=== PATIENT | female | born 1965 | race Caucasian/White ===

== ENCOUNTER 2017-06-01 13:19 | Inpatient (IN) | payer OTHER ==
[~2017-06-01] VITALS: Ht 152.4 cm; Wt 85.3 kg
[2017-06-01 16:02] LABS: CALCIUM 8.5 mg/dL (8.5-10.1); CARBON DIOXIDE 24.1 mmol/L (21-32); CREATININE SERUM 1.3 mg/dL (0.6-1.0); POTASSIUM SERUM 4.2 mmol/L (3.5-5.1)
[2017-06-01 16:06] LABS: PLATELET COUNT 324 x10^3mcL (130-400); RED CELL DISTRIBUTION WIDTH 13.9 % (11.5-14.5)
[2017-06-01 16:07] LABS: ALBUMIN 3.7 g/dL (3.4-5.0); TOTAL PROTEIN, SERUM 7.3 g/dL (6.4-8.2)
[2017-06-01 16:21] LABS: microscopic required? NO
[2017-06-01 16:48] LABS: UA SPECIFIC GRAVITY 1.015 (1.005-1.035); urine erythrocyte NEGATIVE (NEGATIVE)
[2017-06-01 17:32] LABS: CK-MB < 0.5 ng/mL (0-3.6); CREATINE KINASE 27 U/L (26-192)
[2017-06-01 17:33] LABS: BAND NEUTROPHIL 0 % (0-10); BASOPHIL 0 % (0-2); MONOCYTE 3 % (0-7); SEGMENTED NEUTROPHILS 94 % (37-75)
[2017-06-01 17:35] LABS: rbc morphology (normal/abnorm) NORMAL (NORMAL)
[2017-06-01] MEDS ORDERED: CEL500 PO (18:35)
[2017-06-01] MEDS ORDERED: MAGNESIUM OXID400 MG PO (18:36)
[2017-06-01] MEDS ORDERED: PREDNISONE5 MG PO (18:36)
[2017-06-01] MEDS ORDERED: ATENOLOL50 MG PO (18:36)
[2017-06-01] MEDS ORDERED: COZAAR100 MG PO (18:36)
[2017-06-01] MEDS ORDERED: PEPCID20 MG PO (18:37)
[2017-06-01] MEDS ORDERED: FEROSUL325 M1 PO (18:37)
[2017-06-01] MEDS ORDERED: PROGRAF1 MG PO (18:38)
[2017-06-01] MEDS ORDERED: SODIUM BICARBO650 MG PO (18:38)
[2017-06-01 19:05] LABS: CHOLESTEROL/HDL RATIO 2.7; MAGNESIUM 1.5 mg/dL (1.8-2.4); PHOSPHOROUS 3.2 mg/dL (2.5-4.9)
[2017-06-01 19:12] VITALS: BP 119/59
[2017-06-01 19:13] LABS: T3 TOTAL 0.88 ng/mL
[2017-06-01 19:15] LABS: FREE T4 1.15 ng/dL (0.76-1.46); FREE THYROXINE INDEX 2.7 ug/dL (1.4-4.5); T4(THYROXINE) 7.5 ug/dL (4.7-13.3)
[2017-06-01 19:27] LABS: AMPHETAMINE QUAL UR NONE DETECTED (NEG <=1000)
[2017-06-02 06:18] VITALS: BP 134/74
[2017-06-02 06:45] LABS: BASOPHIL % 0.1 % (0-2); PLATELET COUNT 276 x10^3mcL (130-400); RED CELL DISTRIBUTION WIDTH 13.8 % (11.5-14.5)
[2017-06-02 07:03] LABS: CALCIUM 8.2 mg/dL (8.5-10.1); CREATININE SERUM 1.7 mg/dL (0.6-1.0); MAGNESIUM 1.6 mg/dL (1.8-2.4); PHOSPHOROUS 3.1 mg/dL (2.5-4.9); POTASSIUM SERUM 4.2 mmol/L (3.5-5.1)
[2017-06-02 08:41] VITALS: BP 125/60
[2017-06-02] MEDS ORDERED: PROGRAF1 MG PO (09:39)
[2017-06-02 14:09] VITALS: BP 115/61
[2017-06-02 18:34] VITALS: BP 134/69
[2017-06-02 21:25] VITALS: BP 137/77
[2017-06-03 05:40] VITALS: BP 127/63
[2017-06-03 06:38] LABS: CALCIUM 8.1 mg/dL (8.5-10.1); CARBON DIOXIDE 22.3 mmol/L (21-32); CREATININE SERUM 1.7 mg/dL (0.6-1.0); PHOSPHOROUS 4.3 mg/dL (2.5-4.9); POTASSIUM SERUM 4.1 mmol/L (3.5-5.1)
[2017-06-03 06:55] LABS: BASOPHIL % 0.4 % (0-2); PLATELET COUNT 279 x10^3mcL (130-400); RED CELL DISTRIBUTION WIDTH 13.8 % (11.5-14.5)
[2017-06-03 08:58] VITALS: BP 128/72
[2017-06-03 10:54] VITALS: Ht 152.4 cm; Wt 85.3 kg
[2017-06-03 17:23] VITALS: BP 150/82
[2017-06-03 21:52] VITALS: BP 143/76
[2017-06-04 05:45] VITALS: BP 144/69
[2017-06-04 05:56] LABS: BASOPHIL % 0.9 % (0-2); PLATELET COUNT 352 x10^3mcL (130-400); RED CELL DISTRIBUTION WIDTH 13.6 % (11.5-14.5)
[2017-06-04 06:20] LABS: CALCIUM 8.4 mg/dL (8.5-10.1); CARBON DIOXIDE 22.6 mmol/L (21-32); CREATININE SERUM 1.5 mg/dL (0.6-1.0); MAGNESIUM 1.7 mg/dL (1.8-2.4); PHOSPHOROUS 2.9 mg/dL (2.5-4.9); POTASSIUM SERUM 3.9 mmol/L (3.5-5.1)
[2017-06-04 07:35] VITALS: BP 143/76
[2017-06-04] MEDS ORDERED: LAC PO (11:09)
[2017-06-04] MEDS ORDERED: BACO TOP (11:09)
[2017-06-04] MEDS ORDERED: HIBICLENS118 ML TOP (11:10)
[2017-06-04] MEDS ORDERED: CLEOCIN HCL300 MG PO (11:13)
[2017-06-04 13:01] VITALS: BP 143/76
== END 2017-06-04 14:05 | disposition home or self-care (01) | DRG 600 ==
LOC: ED 13:19 → MU 17:09 → DU 17:09 → MU 06-03 07:44
PROVIDERS: Emergency Medicine; ADMIT Family Medicine Sports Medicine
DX: N61.0 Mastitis without abscess (principal); N17.0 Acute kidney failure with tubular necrosis; Z94.0 Kidney transplant status; D68.69 Other thrombophilia; E11.65 Type 2 diabetes mellitus with hyperglycemia; N18.3 Chronic kidney disease, stage 3 (moderate); I12.9 Hypertensive chronic kidney disease with stage 1 through stage 4 chronic kidney disease, or unspecified chronic kidney disease; M32.9 Systemic lupus erythematosus, unspecified; E83.42 Hypomagnesemia; Z68.37 Body mass index [BMI] 37.0-37.9, adult; Z79.899 Other long term (current) drug therapy; Z79.52 Long term (current) use of systemic steroids; Z22.322 Carrier or suspected carrier of Methicillin resistant Staphylococcus aureus
CPT/HCPCS: 82962; 83880; 84439; 90658; J0690; J1885; J2405; J2543; J2550; J3475; J3490; J7030; J7507; J7512; J7517; Q0092

== ENCOUNTER 2019-02-22 17:45 | Emergency (ER) | payer OTHER ==
[~2019-02-22] VITALS: Ht 147.3 cm; Wt 88.5 kg
[~2019-02-22 17:45] MED LIST: ATENOLOL50 MG PO; BACO TOP; CEL500 PO; CLEOCIN HCL300 MG PO; COZAAR100 MG PO; FEROSUL325 M1 PO; HIBICLENS118 ML TOP; LAC PO; MAGNESIUM OXID400 MG PO; PEPCID20 MG PO; PREDNISONE5 MG PO; PROGRAF1 MG PO; SODIUM BICARBO650 MG PO
[2019-02-22 17:53] VITALS: Ht 147.3 cm; Wt 88.5 kg
[2019-02-22 20:07] VITALS: BP 123/78
== END 2019-02-22 20:07 | disposition home or self-care (01) ==
LOC: ED 17:45
DX: J20.9 Acute bronchitis, unspecified (principal); I10 Essential (primary) hypertension; Z98.890 Other specified postprocedural states
CPT/HCPCS: J7512

== ENCOUNTER 2019-02-24 00:19 | Inpatient (IN) | payer OTHER ==
[~2019-02-24] VITALS: Ht 162.6 cm; Wt 102.1 kg
--- NOTE | 2019-02-24 00:33 | NUR ---
EKG COMPLETED. PT TO ROOM T2B.
--- NOTE | 2019-02-24 00:57 | NUR ---
PT. IN ED WITH C/O UPPER BACK PAIN, COUGH, N/V, AND CHEST PAIN WHEN SHE WAS VOMITING. DENIES CHEST PAIN AT THIS TIME. STATES SHE WAS SEEN HERE YESTERDAY AND DIAGNOSED WITH BRONCHITIS, HAS BEEN TAKING ABX AND COUGH MEDICINE PRESCRIBED. STATES SHE DID NOT TAKE ANY THING FOR FEVER OR PAIN TODAY. PT. AAOX4, TALKING AND RESPONDING APPROPRIATELY, BREATHING E/U. FAMILY AT BEDSIDE. AWAITING MSE
--- NOTE | 2019-02-24 01:00 | NUR ---
PT. NOTED TO HAVE OLD VASCULAR SHUT TO LEFT UPPER ARM. STATES SHE NO LOGER GETS DIALYSIS DUE TO HAVING A KIDNEY TRANSPALT YEARS AGO.
--- NOTE | 2019-02-24 01:30 | NUR ---
PT. ROLLING AROUND IN BED, C/O BACK PAIN AND BODY ACHES. ORAL TEMP IS 103. DR. PEREZ MADE AWARE. PT. DENIES CHEST PAIN AT THIS TIME. DAUGHTER AT BEDSIDE, WILL CONTINUE TO MONITOR.
[2019-02-24 02:12] LABS: CALCIUM 8.2 mg/dL (8.5-10.1); CHLORIDE SERUM 104 mmol/L (98-107); CREATININE SERUM 1.9 mg/dL (0.6-1.0); GFR1 29 mL/min; GLUCOSE SERUM 160 mg/dL (74-106); PLATELET COUNT 252 x10^3mcL (130-400); POTASSIUM SERUM 4.5 mmol/L (3.5-5.1); RED CELL DISTRIBUTION WIDTH 13.6 % (11.5-14.5); SODIUM SERUM 136 mmol/L (136-145)
[2019-02-24 02:16] LABS: ALKALINE PHOSPHATASE 73 U/L (46-116); ALT/SGPT 15 U/L (14-59); AST/SGOT 21 U/L (15-37); BILIRUBIN TOTAL 0.43 mg/dL (0.20-1.00)
[2019-02-24 02:28] LABS: ALBUMIN 3.1 g/dL (3.4-5.0)
--- NOTE | 2019-02-24 02:30 | NUR ---
PT. LAYING ON GURNEY IN POSITION OF COMFORT. BREATHING E/U. REPORTS SHE IS FEELING BETTER THAN WHEN SHE FIRST CAME TO ED. REPORTS PAIN 3/10 TO BILATERAL FEET. SLEEPING, EASILY ARROUSABLE. FAMILY AT BEDSIDE. WILL CONTINUE TO MONITOR.
[2019-02-24 02:31] LABS: CK-MB 0.6 ng/mL (0-3.6)
[2019-02-24 02:32] LABS: BASOPHIL % 0 % (0-2)
--- NOTE | 2019-02-24 02:45 | NUR ---
PT. INFORMED THAT URINE SAMPLE SHE LEFT EARLIER IS NO ENOUGH FOR CULTURE. INFORMED HER WE NEED ANOTHER SAMPLE. STATES SHE IS UNABLE TO VOID AT THIS TIME. WILL CHECK BACK WITH PT. IN 30MIN
[2019-02-24 03:20] LABS: UA SPECIFIC GRAVITY 1.015 (1.005-1.035); microscopic required? YES; urine erythrocyte 1+ (NEGATIVE)
--- NOTE | 2019-02-24 03:45 | NUR ---
PT. LAYING ON GURNEY IN POSITION OF COMFORT. BREATHING E/U. NOT IN ANY APPARENT DISTRESS AT THIS TIME. CALL LIGHT IN REACH. WILL CONTINUE TO MONITOR.
--- NOTE | 2019-02-24 04:25 | NUR ---
PT. LAYING ON GURNEY IN POSITION OF COMFORT. SLEEPING EASILY ARROUSABLE. NOT IN ANY APPARENT DISTRESS. DENIES PAIN. NS STARTED AT 150ML/HR. CALL LIGHT IN REACH. WILL CONTINUE TO MONITOR
--- NOTE | 2019-02-24 04:45 | NUR ---
PT. B/P DECREASED. PT. LAYING FLAT ON BACK, AWAKE AND ALERT. B/P REPEATED AND READING 78/42, PT. PLACED IN TREN POSITION. DENIES PAIN BUT REPORTS FEELING A LITTLE DIZZY. DR. PEREZ MADE AWARE AND AT BEDSIDE. INSTRUCTED TO INFUSE NS AT BOLUS RATE. WILL CONTINUE TO MONITOR.
--- NOTE | 2019-02-24 05:10 | NUR ---
PT. AWAKE AND ALERT. CONTINUES TO BE FLAT ON BACK AND IN [place] POSITON. BREATHING E/U. DENIES PAIN. NS INFUSING AT BOLUS RATE. PT. TOLERATING WELL. WILL CONTINUE TO MONITOR.
[2019-02-24] MEDS ORDERED: PROMETHAZI6.25 MG/5 (05:35)
[2019-02-24] MEDS ORDERED: AZITHROMYCIN250 M1 (05:35)
--- NOTE | 2019-02-24 05:50 | NUR ---
PT. TAKEN OUT OF TREN POSITION. DENIES PAIN OR FEELING DIZZY. AWAKE AND ALERT. NOT IN ANY APPARENT DISTRESS AT THIS TIME. CALL LIGHT IN REACH. WILL CONTINUE TO MONITOR.
--- NOTE | 2019-02-24 05:50 | NUR ---
PER JOSE LEDBETTER FOR PT. TO TRANSFER TO TELE FOR FURTHER CARE AND EVALUATION.
--- NOTE | 2019-02-24 05:55 | NUR ---
REPORT CALLED TO JUDITH PARHAM FOR FURTHER CARE OF PATIENT. ALL QUESTIONS AN CONCERNS ADDRESED.
--- NOTE | 2019-02-24 06:08 | NUR ---
PT. TRANSFERED TO [facility]. TRANSPORTED BY FUENTES PARHAM AND CARSISA GUDINO. PT. STABLE AT TIME OF TRANSFER.
--- NOTE | 2019-02-24 06:29 | NUR ---
REC'D PT FROM ED VIA LINA ACCOMPANIED BY RN. PT ADM WITH CC OF COUGH, CP, AND UPPER BACK PAIN. DX: UTI. AAOX4, SPEECH CLEAR, FOLLOWS COMMANDS. TELE 24, NSR, HR 91. DENIES CP OR PALPITATIONS. BP 88/54, MAP 65. REPORTS MILD DIZZINESS. DENIES RESP DISTRESS OR SOB. BREATHING EVEN/UNLABORED ON RA. C/O PRODUCTIVE COUGH WITH WHITE+YELLOW SPUTUM. PT WAS DX WITH BRONCHITIS A FEW DAYS AGO AND WAS PUT OF AZITHROMYCIN. ABD SOFT/ROUND. DENIES ABD PAIN, TENDERNESS, OR N/V. VOIDING FREELY, DENIES DYSURIA. PT HAS HX OF RENAL TRANSPLANT WITH NONFUNCTIONAL LFA SHUNT. AMBULATORY. SKIN INTACT. IV TO RAC FLUSHED AND PATENT. HOME MEDS AT BEDSIDE. INSTRUCTED NOT TO TAKE MEDICATIONS. PT VERBALIZED UNDERSTANDING. ORIENTED TO DEVICES AND SURROUNDINGS. CALL LIGHT WITHIN REACH, BED AT LOWEST POSITION. WILL ENDORSE TO DAY NURSE.
[2019-02-24 06:34] VITALS: BP 88/54
--- NOTE | 2019-02-24 07:15 | NUR ---
PATIENT IS IN BED, BED IS TO THE LOWEST POSITION. PATIENT IS ALERT AND ORIENTED TO PERSON, PLACE AND TIME. PATIENT IS ABLE TO FOLLOW COMMANDS, TACTILE VOICE AND PAIN. PATIENT IS ON ROOM AIR, BREATHING ADEQUATELY AND THERE ARE NO SIGNS OF RESPIRATORY DISTRESS NOTED. PATIENT HAS IV ACCESS NOTED TO RAC, SALINE LOCKED. SKIN IS INTACT. PATIENT IS STABLE WITH NO SIGNS OF DISTRESS. HEELS ARE OFF LOADED WITH PILLOWS, CALL LIGHT IS WITHIN REACH, WILL CONTINUE TO MONITOR.
--- NOTE | 2019-02-24 07:44 | NUR ---
PATIENT IS ON THE BEDSIDE COMMODE, PATIENT IS ALERT AND ORIENTED TO PERSON, PLACE AND TIME. PATIENT IS ABLE TO FOLLOW COMMANDS. DAUGHTER IS AT BEDSIDE. PATIENT IS ON ROOM AIR, BREATHING ADEQUATELY WITH NO SIGNS OF RESPIRATORY DISTRESS NOTED. PATIENT HAS SERRA, DRAINING VIA GRAVITY, YELLOW URINE. PATIENT HAS OPEN INCISION NOTED TO ABDOMEN, WOUND VAC NOTED. L ABDOMEN, ACCORDIAN TUBE NOTED, CLEAR DRAINIAGE NOTED. R ELBOW AND R [place] DRESSING NOTED. BLISTER NOTED TO BLE, BANDAGE NOTED. IV ACCESS NOTED TO R HAND, N/S NOTED AT 70 ML/HR. PATIENT HAS CALL LIGHT WITHIN REACH, WILL CONTINUE TO MONITOR.
[2019-02-24 07:59] VITALS: BP 88/54
[2019-02-24 08:47] VITALS: BP 165/87
--- NOTE | 2019-02-24 09:29 | NUR ---
DR. HENSON MADE AWARE OF TEMP. 102.6. PT IN NO DISTRESS, COOLING MEASURES INITIATED.
--- NOTE | 2019-02-24 11:10 | NUR ---
PATIENT IS IN BED RESTING COMFORTABLY, FREE FROM ANY DISTRESS.
--- NOTE | 2019-02-24 12:24 | NUR ---
DR. HENSON AT BEDSIDE, ALL UPDATES PROVIDED. EXPLAINED TO THE PATIENT THAT THEY CURRENT PLAN IS ANTIBIOTICS, AND TO MONITOR TEMPERATURE. PATIENT INDICATED UNDERSTANDING. NO FURTHER ORDERS AT THIS TIME.
[2019-02-24 12:52] VITALS: BP 109/65; BP 115/70
--- NOTE | 2019-02-24 15:04 | NUR ---
RECEIVED BC RESULT WITH GRAM NEGATIVE BACILLI, DR. BHANDARI MADE AWARE. WILL CONT. IV ROCEPHIN ORDERED.
--- NOTE | 2019-02-24 15:36 | NUR ---
PATIENT IN BED, RESTING COMFORTABLY AT THIS TIME. PATIENT HAS NO S/S OF PAIN. WILL CONTINUE TO MONITOR.
[2019-02-24 17:19] VITALS: BP 157/105
--- NOTE | 2019-02-24 17:25 | NUR ---
PER CASCADE OPERATOR, PATIENTS TEMPERATURE ELEVATED. PATIENTS TEMPERATURE REASSESSED, AND TO BE A HIGH OF 102.0. COOLING MEASURES PROVIDED, AND TYLENOL GIVEN, SEE EMAR. WILL REASSESS.
--- NOTE | 2019-02-24 19:24 | NUR ---
GAVE REPORT TO PRASAD ANGELES. ALL QUESTIONS ANSWERED.
--- NOTE | 2019-02-24 19:26 | NUR ---
NURSING CO-SIGN THE DOCUMENTATION ENTERED BY THE RN COURT HAS BEEN REVIEWED. REVIEWED/CO-SIGNED BY: Donna Gray DOCUMENTATION DONE BY:KEVYN LAWRENCE
--- NOTE | 2019-02-24 20:00 | NUR ---
RECEIVED PT WITH EYES CLOSED, APPEARS TO BED SLEEPING IN NO DISTRESS. EASILY AROUSABLE. ORIENTED X4. SPEECH CLEAR. ABLE TO MAKE NEEDS KNOWN. DENIES CHEST PAIN. LUNG SOUNDS CLEAR. BREATHING EASILY ON ROOM AIR. BS ACTIVE IN ALL FOUR QUADS. LAST BM TODAY. VOIDING FREELY. PT ABLE TO AMBULATE WITH MINIMAL ASSISTANCE NEEDED. FULL ROM. IVF NS AT 80ML/HR INFUSING WELL TO RAC. SHIFT ASSESSMENT COMPLETED. CALL LIGHT WITHIN REACH. BED IS IN LOWEST POSITION. WILL CONTINUE TO MONITOR CLOSELY.
[2019-02-24 20:43] VITALS: BP 139/75
--- NOTE | 2019-02-24 22:20 | NUR ---
TEMP 102.7, COOLING MEASURES STARTED AND TYLENOL GIVEN AT THIS TIME.
--- NOTE | 2019-02-24 23:30 | NUR ---
LATEST TEMP IS 101.8, CONTINUED WITH COOLING MEASURES.
[2019-02-25 05:27] VITALS: BP 126/80
--- NOTE | 2019-02-25 05:40 | NUR ---
TEMP IS 102.2, TYLENOL GIVEN ORDERED. COOLING MEASURES REINFORCED.
[2019-02-25 06:42] LABS: PLATELET COUNT 187 x10^3mcL (130-400); RED CELL DISTRIBUTION WIDTH 14.1 % (11.5-14.5)
[2019-02-25 06:45] LABS: CALCIUM 7.7 mg/dL (8.5-10.1); CARBON DIOXIDE 21.7 mmol/L (21-32); CREATININE SERUM 1.5 mg/dL (0.6-1.0); MAGNESIUM 1.5 mg/dL (1.8-2.4); POTASSIUM SERUM 3.7 mmol/L (3.5-5.1)
--- NOTE | 2019-02-25 07:05 | NUR ---
RECEIVED PT FROM FILM HISTORIAN NURSE. PT RESTING IN BED, AOX4, RESP E/U ON NC AT 2 LPM. NO ACUTE DISTRESS NOTED. ON TELE 28 SHOWING NSR, HR: 88. SALINE LOCK TO RH W/ NO ERYTHEMA OR EDEMA. BED IN LOWEST POSITION AND CALL LIGHT WITHIN REACH. WILL CONTINUE TO MONITOR.
--- NOTE | 2019-02-25 07:06 | NUR ---
RECEIVED PT FROM BRIDAL CONSULTANT NURSE. PT RESTING IN BED, AOX4, RESP E/U ON RA. TEMP REASSESSED, T: 98.4. DENIES PAIN, HEADACHE OR NAUSEA. ON TELE 24 SHOWING NSR, HR: 98. IV TO RAC W/ NO SIGNS OF INFILTRATION, IVF INFUSING WELL. BED IN LOWEST POSITION AND CALL LIGHT WITHIN REACH. WILL CONTINUE TO MONITOR.
--- NOTE | 2019-02-25 09:51 | NUR ---
PT HAD EPISODE OF EMESIS DURING MEDICATION ADMINISTRATION. DARK GREEN WATERY OUTPUT W/ NO OBSERVED MEDS IN EMESIS. ADMINISTERED PRN ZOFRAN IVP ORDERED FOR N/V. COMFORT MEASURES IMPLEMENTED. REMAINING MEDS FOR 0900 WITHHELD AT THIS TIME. WILL CONTINUE TO MONITOR.
--- NOTE | 2019-02-25 11:22 | NUR ---
REASSESSED PT. PT REPORTED MILD NAUSEA BUT MORE TOLERABLE SINCE PREVIOUSLY. ABLE TO TAKE REMAINING ORAL MEDS AT THIS TIME, NO EMESIS NOTED. IV MAG STARTED ORDERED, INFUSING WELL. WILL CONTINUE TO MONITOR.
[2019-02-25 11:59] LABS: BAND NEUTROPHIL 3 % (0-10); BASOPHIL 0 % (0-2); MONOCYTE 4 % (0-7); SEGMENTED NEUTROPHILS 90 % (37-75)
[2019-02-25 12:00] LABS: PLATELET MORPHOLOGY PLATELETS DECREASED; rbc morphology (normal/abnorm) ABNORMAL (NORMAL)
[2019-02-25 12:24] VITALS: BP 158/63
--- NOTE | 2019-02-25 13:05 | NUR ---
PT MEDICATED ORDERED W/ PRN TYLENOL FOR T: 102.1. COOLING MEASURES IMPLEMENTED. WILL CONTINUE TO MONITOR.
--- NOTE | 2019-02-25 15:42 | NUR ---
PT SITTING UPRIGHT IN BEDAOX4, RESP E/U ON RA. VS REASSESSED. T: 98.5. DENIES HEADACHE OR N/V AT THIS TIME. BED IN LOWEST POSITION AND CALL LIGHT WITHIN REACH. FAMILY AT BEDSIDE. WILL CONTINUE TO MONITOR.
[2019-02-25 16:23] VITALS: BP 142/88
--- NOTE | 2019-02-25 18:33 | NUR ---
PT RESTING IN BED, AOX4, RESP E/U ON RA. REPORTS MILD HEADACHE BUT TOLERABLE, DENIES DIZZINESS OR N/V. NO REQUEST FOR PAIN MEDS AT THIS TIME. IV TO RAC W/ NO SIGNS OF INFILTRATION, IVF INFUSING WELL. BED IN LOWEST POSITION AND CALL LIGHT WITHIN REACH. WILL ENDORSE TO ONCOMING NURSE.
--- NOTE | 2019-02-25 19:49 | NUR ---
RECEIVED PT FROM PREVIOUS SHIFT. PT A/OX4. DENIES PAIN. DENIES SOB ON RA. IV PATENT AND INFUSING WELL WITH NO S/S OF INFILTRATION. CALL LIGHT WITHIN REACH, BED IN LOW POSITION. WILL CONTINUE TO MONITOR.
[2019-02-25 19:52] VITALS: BP 163/93
--- NOTE | 2019-02-25 21:31 | NUR ---
PT C/O HEAD AND NECK PAIN 02/26 AND N/V. ZOFRAN AND NORCO PROVIDED PER EMAR. IV PATENT. DAUGHTER AT BEDSIDE. CALL LIGHT WITHIN REACH, BED IN LOW POSITION. WILL CONTINUE TO MONITOR.
--- NOTE | 2019-02-26 01:20 | NUR ---
PT RESTING IN NO ACUTE DISTRESS. RR EVEN AND UNLABORED. CALL LIGHT WITHIN REACH, BED IN LOW POSITION. WILL CONTINUE TO MONITOR.
[2019-02-26 04:51] VITALS: BP 156/84
[2019-02-26 06:38] LABS: CALCIUM 8.4 mg/dL (8.5-10.1); CARBON DIOXIDE 21.2 mmol/L (21-32); CREATININE SERUM 1.2 mg/dL (0.6-1.0); POTASSIUM SERUM 3.8 mmol/L (3.5-5.1)
[2019-02-26 06:55] LABS: BASOPHIL % 0.3 % (0-2); PLATELET COUNT 177 x10^3mcL (130-400); RED CELL DISTRIBUTION WIDTH 13.8 % (11.5-14.5)
--- NOTE | 2019-02-26 07:38 | NUR ---
RECEIVED PATIENT FROM NIGHT NURSE. AWAKE AND ORIENTED. IV INFUSING NS AT 80 ML/HR.
--- NOTE | 2019-02-26 08:51 | NUR ---
AT 0745 - NOTED RAC IV INFILTRATION. IV CATHETER REMOVED INTACT. ARM ELEVATED.
[2019-02-26 08:57] VITALS: BP 141/62
[2019-02-26 12:37] VITALS: BP 137/73
--- NOTE | 2019-02-26 13:13 | NUR ---
RECEIVED CALL FROM LAB WITH BLOOD CULTUURE AND URINE CULTURE RESULTS OF E-COLI, ESBL. CALL PLACED FOR DR BHANDARI TO NOTIFY.
--- NOTE | 2019-02-26 13:30 | NUR ---
RECEIVED CALL FROM DR BHANDARI. UPDATED ON TEST RESULTS AND SENSITIVITIES. PATIENT ON MERIPENUM. NO CHANGE IN ORDERS. NEW IV HAS BEEN RESITED IN RFA.
--- NOTE | 2019-02-26 15:35 | NUR ---
PATIENT HAS BEEN PLACED ON CONTACT ISOLATION FOR ESBL IN URINE.
[2019-02-26 16:18] VITALS: Ht 162.6 cm; Wt 102.1 kg
[2019-02-26 17:18] VITALS: BP 135/70
--- NOTE | 2019-02-26 17:43 | NUR ---
SEEN BY DR BHANDARI. SPOKE WITH PATIENT USING [employer] COORDINATOR. FOR REPEAT BLOOD CULTURES IN AM. PATIENT MAY REQUIRE PICC LINE FOR IV ANTIBIOTICS AT HOME BUT PATIENT EXPRESSED WISH TO STAY IN HOSPITAL.
--- NOTE | 2019-02-26 18:38 | NUR ---
AWAKE, ALERT AND ORIENTED. VISITING WITH FAMILY. VSS. REMAINS AFEBRILE. AMBULATES TO BATHROOM FOR TOILET NEEDS. IV INFUSING NS AT 80ML/HR. PATIENT TAKING SMALL AMOUNTS OF FOOD BUT ENCOURAGED TO INCREASE PO LIQUIDS. WILL ENDORSE CARE TO NIGHT NURSE.
--- NOTE | 2019-02-26 19:51 | NUR ---
AAO X4 VERBAL ALGERIAN SPEAKING WITH SOME [place] ISLANDER, NOT IN ANY DISTRESS LUNGS CTA, NO COUGHING OR CHEST CONGESTION, ON ROOM AIR, TELE #24 INPLACED SR IN THE MONITOR, NO CP OR PRESSURE, CONTACT ISO FOR ESBL URINE BRP VOIDING FREELY NO HEMATURIA, ON ATB IVPB INDICATED, IVF NS INFUSING @ 80CC/HR IV ACCESS RFA PATENT NON INFIL, SHIFT ASSESSMENT DONE, ATTENDED NEEDS, CONT TO MONITOR.
[2019-02-26 21:05] VITALS: BP 114/68
--- NOTE | 2019-02-27 02:57 | NUR ---
PT C/O NON PRODUCTIVE COUGH NO DISTRESS, WITH CHEST CONGESTION, CALLED DR VERONICA HARRELL, SPOKE TO MD AND RELAYED PT'S CONCERNS, DR HARRELL ORDERED LASIX 20 MG QD TO START DOSE NOW, AND ROBITUSSIN FOR COUGH, ALL ORDERS NOTED AND CARRIED OUT, CONT TO MONITOR.
[2019-02-27 05:45] VITALS: BP 101/59
--- NOTE | 2019-02-27 06:08 | NUR ---
PT AWAKE WITH ON AND OFF MOIST COUGH, ROBITUSSIN PO GIVEN PER PRN ORDER, PT STATED DIDNT HAVE GOOD SLEEP COZ OF COUGH, MD AWARE, NO DISTRESS, PT WITH SLIGHT CHEST CONGESTION, ENCOURAGED FLUIDS CONT TO MONITOR.
--- NOTE | 2019-02-27 07:00 | NUR ---
RECEIVED BEDSIDE REPORT FROM TIE CUTTER NURSE. PATIENT IS STABLE ON ROOM AIR. NO APPARENT SIGNS OF PAIN, SOB, OR RESPIRATORY DISTRESS. ON TELE 24. SCD'S AT BEDSIDE. PATIENT IS RESTING COMFORTABLY IN BED. IV TO RFA INTACT, PATENT INFUSING NS AT 80ML/HR. NO EDEMA OR ERYTHEMA NOTED TO SITE. CALL LIGHT AND PHONE WITHIN REACH. BED IN LOW POSITION. BEDRAILS UP X2. PATIENT ORIENTED TO ROOM QUESTIONS AND CONCERNS ADDRESSED. SAFETY PRECAUTIONS IN PLACE.
[2019-02-27 07:07] LABS: BASOPHIL % 0.3 % (0-2); PLATELET COUNT 193 x10^3mcL (130-400); RED CELL DISTRIBUTION WIDTH 13.4 % (11.5-14.5)
--- NOTE | 2019-02-27 07:15 | NUR ---
PHYSICAL ASSESSMENT COMPLETED. PLEASE SEE PROBLEM FOCUSED CARE FOR DETAILS.
[2019-02-27 07:36] LABS: CALCIUM 8.4 mg/dL (8.5-10.1); CARBON DIOXIDE 21.9 mmol/L (21-32); CREATININE SERUM 1.4 mg/dL (0.6-1.0); MAGNESIUM 1.8 mg/dL (1.8-2.4); POTASSIUM SERUM 3.5 mmol/L (3.5-5.1)
[2019-02-27 08:32] VITALS: BP 124/52
--- NOTE | 2019-02-27 09:22 | NUR ---
ADMINISTERED MEDICATION PER EMAR. PATIENT TOLORATED WELL. EDUCATED ON NEED FOR MEDICATION, WELL ADVERSE EFFECTS TO RESPORT. PATIENT VERBALIZED UNDERSTANDING. DENIES OTHER NEEDS AT THIS TIME. CALL LIGHT AND PHONE WITHIN REACH. BED IN LOW POSITION, BED RIALS UP X2. QUESTIONS AND CONCERNS ADDRESSED. SAFETY PRECAUTIONS IN PLACE.
--- NOTE | 2019-02-27 10:37 | NUR ---
PATIENT IS STABLE NO APPARENT SIGNS OF PAIN SOB, OR RESPIRATORY DISTRESS. PATIENT ON ROOM AIR. DENIES OTHER NEEDS AT THIS TIME. QUESTIONS AND CONCERNS ADDRESSED. SAFETY PRECAUTIONS IN PLACE.
--- NOTE | 2019-02-27 11:57 | NUR ---
ADMINISTERED GLUCOSE CHECK PER EMAR. PATIENT TOLORATED WELL. EDUCATED ON NEED FOR MEDICATION, WELL ADVERSE EFFECTS TO RESPORT. PATIENT VERBALIZED UNDERSTANDING. DENIES OTHER NEEDS AT THIS TIME. CALL LIGHT AND PHONE WITHIN REACH. BED IN LOW POSITION, BED RIALS UP X2. QUESTIONS AND CONCERNS ADDRESSED. SAFETY PRECAUTIONS IN PLACE.
[2019-02-27 12:04] VITALS: BP 109/65
[2019-02-27] MEDS ORDERED: ADA30 PO (16:42)
[2019-02-27] MEDS ORDERED: ACETAMINOPHEN-H1 TA1 PO (16:42)
[2019-02-27] MEDS ORDERED: GLU5 PO (16:43)
[2019-02-27] MEDS ORDERED: MER500I IV (16:43)
[2019-02-27] MEDS ORDERED: INVANZ1 GM IV (16:49)
--- NOTE | 2019-02-27 17:23 | NUR ---
RECEIVED ORDERS TO TRANSFER TO [facility]. PATIENT IS STABLE NO APPARENT SIGNS OF PAIN, SOB, OR RESPIRATORY DISTRESS. PATIENT DENIES CHEST PAIN, HEADACHE, OR DIZZINESS. TELE REMOVED AND RETURNED. QUESTIONS AND CONCERNS ADDRESSED. SAFETY PRECAUTIONS IN PLACE.
[2019-02-27 17:28] VITALS: BP 100/58
--- NOTE | 2019-02-27 18:47 | NUR ---
PATIENT IS STABLE NO APPARENT SIGNS OF PAIN, SOB, OR RESPIRATORY DISTRESS. PATIENT DENIES CHEST PAIN OR PRESSURE. ON CONTACT PRECAUTIONS FOR E-COLI. EXTENDED SPECTRUM BETA LACTINACE (ESBL). PATIENT IS RESTING COMFORTABLY IN BED. IV TO RIGHT FOREARM INFUSING WELL. NO EDEMA OR ERYTHEMA NOTED TO SITE. QUESTIONS AND CONCERNS ADDRESSED. CALL LIGHT ABD PHONE WITHIN REACH. BED IN LOW POSITION. SAFETY PRECAUTIONS IN PLACE. WILL ENDORSE CARE TO GLASS CYLINDER FLANGER NURSE. PATIENT IS PENDING TRANSFER TO SNF FOR IV ABX.
--- NOTE | 2019-02-27 19:18 | NUR ---
ENDORSED CARE TO CAN SLIDER NURSE SAW.
--- NOTE | 2019-02-27 20:07 | NUR ---
CONTACT ISO POSTED FOR ESBL URINE, PT REMAINED ON ATB IV NO ADV REACTION, AAO VERBAL KYRGYZ SPEAKING, WITH OCC COUGHING PRODUCTIVE, CHEST CONGESTION, NO DISTRESS ON ROOM AIR, SATURATING 97%, TRACED EDEMA BLE, SCD'S OFF ON HEPARIN SQ FOR DVT PROPHYLAXIS, IVF NS INFUSING @ 90CC/HR IV ACCESS RFA PATENT NON INFIL, AMBULATES ADLIB, DENIES PAIN, SHIFT ASSESSMENT DONE, FAMILY AT BEDSIDE FOR VISIT, CONT TO MONITOR.
--- NOTE | 2019-02-27 21:00 | NUR ---
ROBITUSSIN PO GIVEN PER PRN ORDER FOR COUGH, PT DENIES PAIN, NO DISTRESS.
[2019-02-27 21:11] VITALS: BP 103/60
[2019-02-28 05:49] VITALS: BP 107/56
[2019-02-28 06:09] LABS: BASOPHIL % 0.5 % (0-2); PLATELET COUNT 258 x10^3mcL (130-400); RED CELL DISTRIBUTION WIDTH 13.6 % (11.5-14.5)
--- NOTE | 2019-02-28 06:09 | NUR ---
NO SIGNIFICANT CHANGES DURING THE SHIFT, BS 76 MG/DL NO S/SX OF HYPOGLYCEMIA WILL ENDORSE TO INCOMING SHIFT FOR F/U CARE.
[2019-02-28 06:22] LABS: CARBON DIOXIDE 25.9 mmol/L (21-32); CREATININE SERUM 1.3 mg/dL (0.6-1.0); MAGNESIUM 1.6 mg/dL (1.8-2.4); POTASSIUM SERUM 3.5 mmol/L (3.5-5.1)
--- NOTE | 2019-02-28 07:20 | NUR ---
RECEIVED PT FROM NIGHT NURSE. PT IS LAYING DOWN IN BED WITH HOB UP RESTING WITH EYES OPEN. PT LOOKS TO BE IN NO ACUTE DISTRESS AT THIS TIME AND DENIES ANY PAIN. RESRPIATIONS EVEN AND UNLABORED ON ROOM AIR. IV SITE PATENT WITH NO SIGNS OF ERYTHEMA OR SWELLING WITH IV FLUIDS INFUSING. BED IN LOWEST POSITION, CALL LIGHT WITHIN REACH. WILL CONTINUE TO MONITOR.
[2019-02-28 08:32] VITALS: BP 109/62
--- NOTE | 2019-02-28 10:00 | NUR ---
PT HAD AN EPISODE OF WATERY VOMIT. PT STATES THAT SHE DOES NOT FEEL NAUSTATED AT THIS TIME AND DOES NOT FEEL THE NEED TO VOMIT. EMESIS BAG AT BEDSIDE. WILL CONITNUE TO MONITOR.
[2019-02-28 13:08] VITALS: BP 109/62
--- NOTE | 2019-02-28 13:45 | NUR ---
CALLED [facility] AND GAVE REPORT TO THE NURSE, DANIA. INFORMED NURSE THAT THE PATIENT'S FAMILY MEMBER WILL BE TRANSPORTING THE PATIENT TO THE FACILITY. PATIENT'S FAMILY MEMBER WILL BE AT THE HOSPITAL TO TAKE PATIENT TO [facility] AT 1400. IV CATHETER REMAINS TO CONTINUE IV ANTIBIOTIC. PATIENT WILL BE GOING TO ROOM 20.
--- NOTE | 2019-02-28 14:15 | NUR ---
PT AWAKE, ALERT AND ORIENTED AT TIME OF DISCHARGE. PT LOOKS TO BE IN NO ACUTE DISTRESS AND DENIED ANY PAIN AT THE TIME OF DISCHARGE. PT TRANSFERED TO [facility] AND WAS TRANSFERED THERE BY FAMILY MEMBER. PT WENT TO THE LOBBY VIA WHEELCHAIR ACCOMPANIED BY NURSE AND FAMILY MEMBER WITH LYNETTE IN HAND. IV PRESENT TO RIGHT FOREARM AND IS H/L. PROVIDED PT WITH EDUCATION AND FOLLOW UP APPOINTMENT. PT AND FAMILY MEMBER VERBALIZED UNDERSTANDING OF EDUCATION. ALL QUESTIONS AND CONCERNS ADDRESSED.
== END 2019-02-28 14:36 | DRG 871 ==
LOC: ED 00:19 → DU 05:35 → MU 05:35 → DU 06:10 → MU 02-27 17:28
PROVIDERS: Emergency Medicine; Internal Medicine Pulmonary Disease; ADMIT Internal Medicine Pulmonary Disease
DX: A41.51 Sepsis due to Escherichia coli [E. coli] (principal); N17.0 Acute kidney failure with tubular necrosis; N39.0 Urinary tract infection, site not specified; Z94.0 Kidney transplant status; B96.29 Other Escherichia coli [E. coli] as the cause of diseases classified elsewhere; M32.14 Glomerular disease in systemic lupus erythematosus; D89.9 Disorder involving the immune mechanism, unspecified; I12.9 Hypertensive chronic kidney disease with stage 1 through stage 4 chronic kidney disease, or unspecified chronic kidney disease; N18.9 Chronic kidney disease, unspecified; Z68.37 Body mass index [BMI] 37.0-37.9, adult
CPT/HCPCS: 82962; G0378; J0696; J1335; J1644; J1940; J2185; J2405; J3475; J7030; J7507; J7512; J7517; Q0092

== ENCOUNTER 2019-07-18 12:58 | Emergency (ER) | payer OTHER ==
[~2019-07-18] VITALS: Ht 160 cm; Wt 89.8 kg
[~2019-07-18 12:58] MED LIST changes: +ACETAMINOPHEN-H1 TA1 PO; +ADA30 PO; +AZITHROMYCIN250 M1; +GLU5 PO; +INVANZ1 GM IV; +MER500I IV; +PROMETHAZI6.25 MG/5
[2019-07-18 13:03] VITALS: Ht 160 cm; Wt 89.8 kg
[2019-07-18 14:02] VITALS: BP 110/63
== END 2019-07-18 14:02 | disposition home or self-care (01) ==
LOC: ED 12:58
DX: J20.9 Acute bronchitis, unspecified (principal); I10 Essential (primary) hypertension
CPT/HCPCS: J7613; J7644

== ENCOUNTER 2020-10-27 11:57 | Emergency (ER) | payer OTHER, SELFPAY ==
[~2020-10-27] VITALS: Ht 149.9 cm; Wt 91.9 kg
[2020-10-27 12:14] VITALS: Ht 149.9 cm; Wt 91.9 kg
[2020-10-27 12:50] LABS: BASOPHIL % 0.8 % (0.2-1.3); PLATELET COUNT 262 x10^3mcL (179-408); RED CELL DISTRIBUTION WIDTH 14.1 % (12.3-17.7)
[2020-10-27 12:57] LABS: CALCIUM 8.1 mg/dL (8.5-10.1); CARBON DIOXIDE 22.9 mmol/L (21-32); CREATININE SERUM 1.5 mg/dL (0.6-1.0); POTASSIUM SERUM 4.2 mmol/L (3.5-5.1)
[2020-10-27 13:02] LABS: ALBUMIN 3.6 g/dL (3.4-5.0); BILIRUBIN TOTAL 0.66 mg/dL (0.20-1.00)
[2020-10-27 13:50] LABS: UA SPECIFIC GRAVITY 1.015 (1.005-1.035); microscopic required? YES; urine erythrocyte 2+ (NEGATIVE)
[2020-10-27] MEDS ORDERED: MACROBID100 MG PO ×2 (14:47)
[2020-10-27 15:13] VITALS: BP 139/76
[2020-10-28] MEDS ORDERED: GOOD NEIGHBOR M25 MG PO (19:50)
[2020-10-28] MEDS ORDERED: MELOXICAM15 M1 PO (19:51)
[2020-10-31] MEDS ORDERED: BACTRIM DS1 TAB PO (10:04)
== END 2020-10-27 15:10 | disposition home or self-care (01) ==
LOC: ED 11:57
PROVIDERS: Student in an Organized Health Care Education/Training Program
DX: N39.0 Urinary tract infection, site not specified (principal); E11.9 Type 2 diabetes mellitus without complications; I10 Essential (primary) hypertension; M32.9 Systemic lupus erythematosus, unspecified